=== PATIENT | female | born 1965 | race Caucasian/White ===

== ENCOUNTER 2019-03-03 13:06 | Emergency (ER) | payer BC ==
[~2019-03-03] VITALS: Ht 175.3 cm; Wt 52.3 kg
[2019-03-03 13:12] VITALS: TEMP 97
[2019-03-03 13:35] LABS: BASO # 0.1 (0.0-0.2); BASO % 0.7 % (0.0-2.0); EOS # 0.2 (0.0-0.7); EOS % 2.2 % (0-4.0); GRAN # 3.7 (1.4-6.5); GRAN % 45.1 % (42.2-75.2); HEMATOCRIT 45.3 % (37.0-47.0); HEMOGLOBIN 15.5 g/dl (12.5-16.0); LYMPH # 3.4 (1.2-3.4); LYMPH % 42.1 % (20.0-51.0); MEAN CELL VOLUME 93 fl (80.0-100.0); MEAN CORPUSCULAR HEMOGLOBIN 32 pg (27.0-31.0); MEAN CORPUSCULAR HGB CONC 34 g/dl (33.0-37.0); MEAN PLATELET VOLUME 10.5 fl (7.4-10.4); MONO # 0.8 (0.1-0.6); MONO % 9.7 % (1.7-9.3); PLATELET COUNT 300 K/mm3 (130-400); RED BLOOD COUNT 4.87 M/mm3 (4.10-5.30); REDCELL DISTRIBUTION WIDTH-CV 12.8 % (11.5-14.5)
[2019-03-03 13:41] LABS: INR 0.8 (0.8-3.0); PROTHROMBIN TIME 9.8 SECONDS (9.7-12.8)
[2019-03-03 13:43] LABS: ALANINE AMINOTRANSFERASE 30 U/L (9-52); ALBUMIN 4.9 gm/dL (3.5-5.0); ALKALINE PHOSPHATASE 59 U/L (50-136); ANION GAP 11 mmol/L (7-16); AST,SGOT 36 U/L (15-37); BILIRUBIN,TOTAL 1.9 mg/dL (0.0-1.0); BLOOD UREA NITROGEN 14 mg/dL (7-17); CALCIUM 10.1 mg/dL (8.4-10.2); CARBON DIOXIDE 26 mmol/L (22-30); CHLORIDE 103 mmol/L (98-107); CREATININE, serum 0.68 (0.52-1.25); GLUCOSE 113 mg/dL (74-106); PARTIAL THROMBOPLASTIN TIME 32.8 SECONDS (26.0-37.0); POTASSIUM 3.8 mmol/L (3.4-5.0); SODIUM 139 mmol/L (137-145); TOTAL PROTEIN 8.2 gm/dL (6.4-8.2)
[2019-03-03 13:55] LABS: TROPONIN-I < 0.012 ng/mL (0.000-0.035)
[2019-03-03 18:01] VITALS: BP 115/63; PULSE 65
== END 2019-03-03 18:02 | disposition home or self-care (01) ==
LOC: COL.ER 13:06
PROVIDERS: Family Medicine
DX: R07.89 Other chest pain (principal); R00.2 Palpitations; F17.210 Nicotine dependence, cigarettes, uncomplicated

== ENCOUNTER 2021-02-21 17:12 | Emergency (ER) | payer SELFPAY ==
[~2021-02-21] VITALS: Ht 172.7 cm; Wt 59.1 kg
[2021-02-21 18:08] VITALS: TEMP 97.2
[2021-02-21 18:35] LABS: BASO # 0.1 K/mm3 (0.0-0.2); BASO % 1.1 % (0.0-2.0); EOS % 0.3 % (0-4.0); GRAN # 5.6 K/mm3 (1.4-6.5); HEMATOCRIT 39.3 % (37.0-47.0); HEMOGLOBIN 14.1 g/dl (12.5-16.0); LYMPH # 1.2 K/mm3 (1.2-3.4); LYMPH % 15.9 % (20.0-51.0); MEAN CELL VOLUME 93 fl (80.0-100.0); MEAN CORPUSCULAR HEMOGLOBIN 33 pg (27.0-31.0); MEAN CORPUSCULAR HGB CONC 36 g/dl (33.0-37.0); MONO # 0.7 K/mm3 (0.1-0.6); MONO % 9.2 % (1.7-9.3); PLATELET COUNT 226 K/mm3 (130-400); RED BLOOD COUNT 4.25 M/mm3 (4.10-5.30)
[2021-02-21 18:52] LABS: ALBUMIN 4.2 gm/dL (3.5-5.0); BILIRUBIN,TOTAL 2.5 mg/dL (0.2-1.2); C-REACTIVE PROTEIN 0.42 mg/dL (0.00-0.50); CALCIUM 9.3 mg/dL (8.4-10.2); CREATININE, serum 0.67 mg/dL (0.57-1.11)
[2021-02-21 20:12] LABS: COLLECTION METHOD CLEAN CATCH
[2021-02-21 20:24] LABS: MUCOUS Present (NOT PRESENT); PH 6 (5-8); URINE APPEARANCE Hazy (CLEAR/HAZY); URINE BACTERIA Rare (NONE SEEN); URINE BILIRUBIN Negative (NEGATIVE); URINE BLOOD 1+ (NEGATIVE); URINE COLOR Yellow (YELLOW); URINE GLUCOSE Negative (NEGATIVE); URINE KETONE 2+ (NEGATIVE); URINE LEUKOCYTE ESTERASE 1+ (NEGATIVE); URINE NITRATE Negative (NEGATIVE); URINE PROTEIN(semi-quant) Negative (NEGATIVE); URINE UROBILINOGEN Negative (NEGATIVE)
[2021-02-21] MEDS ORDERED: ZOFRAN ODT4 MG PO (22:45)
[2021-02-21] MEDS ORDERED: PERCOCET 325 MG1 TA2 PO (22:45)
[2021-02-21 23:40] VITALS: BP 152/78; PULSE 76
== END 2021-02-21 23:40 | disposition home or self-care (01) ==
LOC: COL.ER 17:12
PROVIDERS: Family Medicine
DX: K85.90 Acute pancreatitis without necrosis or infection, unspecified (principal); F41.9 Anxiety disorder, unspecified; F32.A Depression, unspecified; F17.210 Nicotine dependence, cigarettes, uncomplicated; Z88.5 Allergy status to narcotic agent
CPT/HCPCS: J2270; J2405; J7030; J7120; Q9967

== ENCOUNTER → 2021-11-23 | Outpatient (CLI) | payer BC ==
[~2021-11-23] MED LIST: ATIVAN 1MG T1 MG/TAB PO; B COMPLEX #11 TA1 PO; DUO-KAPS1 CAP PO; FOLIC ACID 11 MG/TA1 PO; NYSTATIN OR100 MU/ML PO; PERCOCET 325 MG1 TA2 PO; PREDNISOLO15 MG/5 M3 PO; PROBIOTIC BLEN1 EACH PO; PROTONIX 40MG T40 MG PO; ROXICODONE 55 MG/TAB PO; THIAMINE 1100 MG/TAB PO; ZOFRAN ODT4 MG PO; ZOLOFT 50MG50 MG PO
== END ==
LOC: COL.RAD 10:59
DX: K76.0 Fatty (change of) liver, not elsewhere classified (principal); K63.89 Other specified diseases of intestine
CPT/HCPCS: Q9967

== ENCOUNTER 2021-11-28 13:09 | Inpatient (IN) | payer BC ==
[~2021-11-28] VITALS: Ht 172.7 cm; Wt 51.8 kg
[~2021-11-28 13:09] MED LIST changes: -ATIVAN 1MG T1 MG/TAB PO; -B COMPLEX #11 TA1 PO; -DUO-KAPS1 CAP PO; -FOLIC ACID 11 MG/TA1 PO; -NYSTATIN OR100 MU/ML PO; -PREDNISOLO15 MG/5 M3 PO; -PROBIOTIC BLEN1 EACH PO; -PROTONIX 40MG T40 MG PO; -ROXICODONE 55 MG/TAB PO; -THIAMINE 1100 MG/TAB PO; -ZOLOFT 50MG50 MG PO
[2021-11-28 14:15] LABS: HEMATOCRIT 37.1 % (37.0-47.0); HEMOGLOBIN 13.3 g/dl (12.5-16.0); MEAN CELL VOLUME 98 fl (80.0-100.0); MEAN CORPUSCULAR HEMOGLOBIN 35 pg (27-31); MEAN CORPUSCULAR HGB CONC 36 g/dl (33.0-37.0); MEAN PLATELET VOLUME 10.8 fl (7.4-10.4); PLATELET COUNT 226 K/mm3 (130-400); REDCELL DISTRIBUTION WIDTH-CV 13.8 % (11.5-14.5)
[2021-11-28 14:34] LABS: CALCIUM 8.4 mg/dL (8.4-10.2); CREATININE, serum 0.79 mg/dL (0.57-1.11); TOTAL PROTEIN 5.3 gm/dL (6.2-8.1)
[2021-11-28 14:39] LABS: POTASSIUM 2.6 mmol/L (3.5-4.5)
[2021-11-28 14:56] LABS: BAND 6 % (0-10); LYMPHOCYTE 4 % (20.0-51.0); METAMYELOCYTE 1 % (0-0); NEUTROPHILS 79 % (42.0-75.2); PLATELET ESTIMATE NORMAL (NORMAL)
[2021-11-28 16:37] LABS: INR 1.9 (0.8-3.0); PROTHROMBIN TIME 22.4 SECONDS (9.7-12.8)
--- NOTE | 2021-11-28 17:30 | NUR ---
PT ADMITTED TO ROOM 311 VIA CART FROM ED, REPORT RECEIVED FROM ED RN, VSS, PT A&O X4, JAUNDICED, FALL PRECAUTIONS IN PLACE, CALL LIGHT IN REACH
[2021-11-28 17:33] VITALS: BP 100/64; PULSE 83; TEMP 98.4
[2021-11-28] MEDS ORDERED: ATIVAN 1MG T1 MG/TAB PO (17:41)
[2021-11-28] MEDS ORDERED: B COMPLEX #11 TA1 PO (17:41)
[2021-11-28] MEDS ORDERED: ZOLOFT 50MG50 MG PO (17:42)
[2021-11-28 20:00] VITALS: BP 95/61; PULSE 79; TEMP 98.3
[2021-11-28 23:48] VITALS: BP 100/63; PULSE 78
[2021-11-29 03:36] VITALS: BP 100/64; PULSE 78; TEMP 98.3
--- NOTE | 2021-11-29 05:57 | NUR ---
SHIFT SUMMARY: PATIENT RESTED QUIETLY THIS SHIFT. PATIENT HAD NO COMPLAINTS OF PAIN AND RECEIVED NO PRNS. PATIENT HAD TWO EPISODES OF INCONTINENT STOOLS. PATIENT NOTED TO HAVE BRIGHT RED BLOOD ON TOILET PAPER WHEN WIPING AND PATIENT REPORTED HAVING HEMMERRHOIDS.
[2021-11-29 06:21] LABS: PROTHROMBIN TIME 23.4 SECONDS (9.7-12.8)
[2021-11-29 06:24] LABS: BASO % 0.2 % (0.0-2.0); EOS % 0.1 % (0.0-4.0); GRAN # 10.6 K/mm3 (1.4-6.5); HEMOGLOBIN 12.4 g/dl (12.5-16.0); LYMPH # 0.9 K/mm3 (1.2-3.4); LYMPH % 6.9 % (20.0-51.0); MEAN CORPUSCULAR HEMOGLOBIN 35 pg (27-31); MEAN CORPUSCULAR HGB CONC 35 g/dl (33.0-37.0); MEAN PLATELET VOLUME 11.5 fl (7.4-10.4); MONO # 0.9 K/mm3 (0.1-0.6); MONO % 6.8 % (1.7-9.3); PLATELET COUNT 200 K/mm3 (130-400); REDCELL DISTRIBUTION WIDTH-CV 14.2 % (11.5-14.5)
[2021-11-29 06:30] LABS: HEMATOCRIT 35.9 % (37.0-47.0); MEAN CELL VOLUME 103 fl (80.0-100.0)
[2021-11-29 06:38] LABS: ALBUMIN 1.7 gm/dL (3.5-5.0); BILIRUBIN,TOTAL 21.9 mg/dL (0.2-1.2); CALCIUM 8.1 mg/dL (8.4-10.2); CREATININE, serum 0.68 mg/dL (0.57-1.11); POTASSIUM 3.6 mmol/L (3.5-4.5); TOTAL PROTEIN 4.6 gm/dL (6.2-8.1)
[2021-11-29 07:19] VITALS: BP 110/64; BP 81/54; PULSE 59; TEMP 98
--- NOTE | 2021-11-29 08:26 | NUR ---
Pt assessment complete. Pt is sitting up in bed upon entry, she is A/O x4. Her breathing is even and unlabored on RA. Pt denies SOB. No pain at this time. Denies N/V. Reports diarrhea. Pt under the understanding she is having a liver biopsy today, will remain NPO until POC better known. No further needs at this time. Call light within reach.
--- NOTE | 2021-11-29 09:04 | NUR ---
Initial visit; Patient thanked Vacuum Repairer for looking in on her and offering Spiritual Care especially God's blessings. Vacuum Repairer will follow up and will keep Elza in her prayers.
[2021-11-29 11:48] VITALS: BP 95/59; PULSE 78; TEMP 97.8
--- NOTE | 2021-11-29 14:09 | NUR ---
Mechanical Design Drafter met with patient to discuss discharge planning. Patient lives alone in [place] and sees LUDIVINA Regalado for primary care. Patient obtains medications from [facility] and anticipates she may have some difficulty affording medications in the future as she quit her job in December and will be living off her senior care funds. Patient does not use any DME and is independent with ADLS. Higinio plans to return home at time of discharge. Patient requested SW follow up later to complete DPOA-HC. SW met with patient again with her son, Madison (ph#[phone]) and sister, Michelle Kelly. Patient stated she wanted to designate both of them as DPOA-HC. AJITH assisted patient in completing form, then AJITH and MARK Ferguson provided witness signature. SW placed copy in chart then provided original and copies to patient. Discharge Plan: Home
[2021-11-29 15:35] VITALS: BP 100/63; PULSE 75; TEMP 98
[2021-11-29 20:15] VITALS: BP 98/65; PULSE 72; TEMP 97.8
[2021-11-29 23:22] VITALS: BP 105/59; PULSE 71; TEMP 97.9
[2021-11-30] VITALS (10 sets, daily range): BP systolic 87–100; BP diastolic 48–65; PULSE 64–76; TEMP 97.5–98.2
--- NOTE | 2021-11-30 05:49 | NUR ---
SHIFT SUMMARY: PATIENT RESTED QUIETLY THIS SHIFT. PATIENT HAD NO COMPLAINTS OF PAIN AND RECEIVED NO PRN MEDICATION. PATIENT APPEARED TO BE STRONGER WHEN AMBULATING IN ROOM COMPARED TO PREVIOUS SHIFT.
[2021-11-30 06:44] LABS: INR 1.5 (0.8-3.0); PROTHROMBIN TIME 16.8 SECONDS (9.7-12.8)
[2021-11-30 06:50] LABS: ALBUMIN 1.7 gm/dL (3.5-5.0); CALCIUM 7.9 mg/dL (8.4-10.2); CREATININE, serum 0.65 mg/dL (0.57-1.11); POTASSIUM 3.2 mmol/L (3.5-4.5); TOTAL PROTEIN 4.5 gm/dL (6.2-8.1)
[2021-11-30 06:58] LABS: BASO % 0.2 % (0.0-2.0); EOS # 0.1 K/mm3 (0.0-0.7); EOS % 0.4 % (0.0-4.0); GRAN # 13.2 K/mm3 (1.4-6.5); GRAN % 78.4 % (42.2-75.2); LYMPH # 1.9 K/mm3 (1.2-3.4); LYMPH % 11.3 % (20.0-51.0); MEAN CELL VOLUME 105 fl (80.0-100.0); MEAN CORPUSCULAR HGB CONC 35 g/dl (33.0-37.0); MEAN PLATELET VOLUME 11.6 fl (7.4-10.4); MONO # 1.4 K/mm3 (0.1-0.6); MONO % 8.4 % (1.7-9.3); PLATELET COUNT 240 K/mm3 (130-400); RED BLOOD COUNT 2.81 M/mm3 (4.10-5.30); REDCELL DISTRIBUTION WIDTH-CV 14.6 % (11.5-14.5)
[2021-11-30 07:06] LABS: HEMATOCRIT 29.5 % (37.0-47.0); MEAN CORPUSCULAR HEMOGLOBIN 36 pg (27-31)
[2021-11-30 07:08] LABS: HEMOGLOBIN 10.2 g/dl (12.5-16.0)
--- NOTE | 2021-11-30 08:30 | NUR ---
0830 Pt laying in bed. Morning medications held due to NPO for EGD procedure today. Shift assessment completed. Pt is jaundice; eyes visibly yellow. Tele on with NSR. IVF NS at 75mL/hr in L wrist; intact. No redness, edema, or infiltration. No complaints or needs at this time. Bed alarm on. Belongings within reach. Call light within reach.
--- NOTE | 2021-11-30 10:26 | NUR ---
IV medications given as ordered. Shift assessment completed, charted by TREV Diaz, charting reviewed.
--- NOTE | 2021-11-30 10:38 | NUR ---
Follow-up visit; Elza having issues with eating, she says she is trying. She seemed earnestly trying to get better and was positive speaking about liking herself and wanting to get well when Skiagrapher told her how special it was working with her when she was here awhile ago. Skiagrapher will look in on Dina while she is here and keep her in her prayers.
--- NOTE | 2021-11-30 14:26 | NUR ---
Patient back from procedure. Post op vitals being monitored. BP's soft, but stable. Remainder of VSS. Patient given prn pain medication for headache that radiates down neck that is currently rated a 4/10. Fluids running as ordered. Patient denies any further pain, discomfort, SOA, or further needs at this time. Call light in reach. Fall precautions in place.
--- NOTE | 2021-11-30 15:29 | NUR ---
Mainframe Programmer followed up with patient about DME. Patient stated her son is working on obtaining a rollator, shower bench, and commode for her. Patient thought her son would likely go through [facility]. SW advised patient she had a signed order from the Hospitalist and to let SW know if [facility] needs any documentation from her. Patient verbalized understanding.
[2021-12-01 03:52] LABS: CERULOPLASMIN 29 mg/dL (20-60)
[2021-12-01 04:40] VITALS: BP 98/60; PULSE 77; TEMP 98.3
[2021-12-01 07:39] LABS: HEMOGLOBIN 12.1 g/dl (12.5-16.0); MEAN CELL VOLUME 103 fl (80.0-100.0); MEAN CORPUSCULAR HEMOGLOBIN 35 pg (27-31); MEAN CORPUSCULAR HGB CONC 34 g/dl (33.0-37.0); MEAN PLATELET VOLUME 11.4 fl (7.4-10.4); PLATELET COUNT 208 K/mm3 (130-400); REDCELL DISTRIBUTION WIDTH-CV 14.5 % (11.5-14.5)
[2021-12-01 07:43] LABS: ALBUMIN 1.7 gm/dL (3.5-5.0); BILIRUBIN,TOTAL 19.5 mg/dL (0.2-1.2); CALCIUM 7.8 mg/dL (8.4-10.2); CREATININE, serum 0.6 mg/dL (0.57-1.11); POTASSIUM 3.8 mmol/L (3.5-4.5); TOTAL PROTEIN 4.5 gm/dL (6.2-8.1)
[2021-12-01 07:44] LABS: HEMATOCRIT 35.9 % (37.0-47.0)
[2021-12-01 07:47] VITALS: BP 98/60; PULSE 75; TEMP 98.6
--- NOTE | 2021-12-01 08:22 | NUR ---
Patient's primary gissell Pacheco RN and student nurse Francisca from 0700 until 1345.
--- NOTE | 2021-12-01 10:06 | NUR ---
Follow-up visit; Patient thanked Composition Roll Maker And Cutter for looking in on her and visiting and wishing her well and God's blessings. Patient seems evasive regarding her health issues yet continues to say she is trying to get better. Her son did visit yesterday evening, she said, so that is good support for her. Composition Roll Maker And Cutter will continue to support her and keep her in Composition Roll Maker And Cutter's prayers.
[2021-12-01 11:08] VITALS: BP 101/61; PULSE 72; TEMP 97.3
[2021-12-01] MEDS ORDERED: NYSTATIN OR100 MU/ML PO (12:07)
[2021-12-01] MEDS ORDERED: PROTONIX 40MG T40 MG PO (12:08)
[2021-12-01] MEDS ORDERED: PROBIOTIC BLEN1 EACH PO (12:08)
[2021-12-01] MEDS ORDERED: THIAMINE 1100 MG/TAB PO (12:09)
[2021-12-01] MEDS ORDERED: FOLIC ACID 11 MG/TA1 PO (12:09)
[2021-12-01] MEDS ORDERED: DUO-KAPS1 CAP PO (12:09)
--- NOTE | 2021-12-01 13:49 | NUR ---
Primary nurse was assisted with [id number] patient care by [employer] student Francisca Quiles and [employer] instructor Helga Baum RN-BC.
[2021-12-01 14:35] LABS: ANA SCREEN with REFLEX Negative (Negative)
--- NOTE | 2021-12-01 15:41 | NUR ---
Perinatal Tech attended clinical rounds with the team and outpatient PT was discussed, which patient is agreeable to. AJITH met with patient to discuss where she would like to get this set up and patient will talk with her family and let SW know. Patient would like her rollator ordered from [facility] and requested order be sent there. AJITH contacted [facility] and faxed order. Angela advised patient will have to private pay for rollator, however tax will be taken off with the prescription AJITH sent. AJITH received a call from patient' DIL, Aurora who wanted to discuss outpatient alcohol counseling options. Aurora advised they have tried to talk with patient about inpatient treatment, however she is not agreeable. Patient is agreeable to counseling. AJITH discussed local options like [facility] and [facility]. AJITH will follow up with patient at a later time as she is currently in a swallow study. Aurora advised they are working with [facility] to pick up driver all needed DME for patient returning home. Aurora also inquired about patient applying for disability. AJITH consulted Ezequiel Financial Counselor.
[2021-12-01 15:44] VITALS: BP 101/58; PULSE 69; TEMP 97.8
--- NOTE | 2021-12-01 16:46 | NUR ---
Patient has had an uneventful day. Scheduled medications given by RN student specialist under close supervision of medical lab tech instructor. Shift assessment completed and charted by this RN. PRN pain medication given once this shift for flank pain. Patient states that this has helped alleviate her pain. VSS. Patient A&O. Patient continues to have diarrhea. Patient denies any further pain, discomfort, SOA, or further needs at this time. Call light in reach. Fall precautions in place.
[2021-12-01 20:06] VITALS: BP 100/66; PULSE 65; TEMP 97.7
[2021-12-02 00:48] VITALS: BP 107/65; PULSE 76; TEMP 97.9
[2021-12-02 04:49] VITALS: BP 101/64; PULSE 77; TEMP 98
[2021-12-02 06:40] LABS: HEMOGLOBIN 12.5 g/dl (12.5-16.0); MEAN CELL VOLUME 104 fl (80.0-100.0); MEAN CORPUSCULAR HEMOGLOBIN 35 pg (27-31); MEAN CORPUSCULAR HGB CONC 34 g/dl (33.0-37.0); MEAN PLATELET VOLUME 11.1 fl (7.4-10.4); PLATELET COUNT 214 K/mm3 (130-400); RED BLOOD COUNT 3.53 M/mm3 (4.10-5.30); REDCELL DISTRIBUTION WIDTH-CV 14.3 % (11.5-14.5)
[2021-12-02 06:52] LABS: INR 1.5 (0.8-3.0); PROTHROMBIN TIME 16.8 SECONDS (9.7-12.8)
[2021-12-02 06:58] LABS: HEMATOCRIT 36.8 % (37.0-47.0)
[2021-12-02 07:00] LABS: ALBUMIN 1.7 gm/dL (3.5-5.0); BILIRUBIN,TOTAL 20.1 mg/dL (0.2-1.2); CALCIUM 7.9 mg/dL (8.4-10.2); CREATININE, serum 0.65 mg/dL (0.57-1.11); POTASSIUM 3.5 mmol/L (3.5-4.5); TOTAL PROTEIN 4.5 gm/dL (6.2-8.1)
[2021-12-02 07:14] VITALS: BP 98/44; PULSE 73; TEMP 97.8
[2021-12-02 08:08] LABS: BAND 3 % (0-10); BASOPHIL 1 % (0-2); EOSINOPHIL 1 % (0-4); LYMPHOCYTE 11 % (20.0-51.0); NEUTROPHILS 75 % (42.0-75.2); PLATELET ESTIMATE NORMAL (NORMAL)
[2021-12-02 08:10] LABS: OVALOCYTES 1+
--- NOTE | 2021-12-02 12:24 | NUR ---
Android Platform Developer rounds: Android Platform Developer visit attempted. Patient was sleeping.
[2021-12-02 15:26] VITALS: BP 109/64; PULSE 72; TEMP 97.9
--- NOTE | 2021-12-02 17:30 | NUR ---
PATIENT ALERT AND ORIENTED X3, RESTING IN RELCINER. NO COMPLAINTS. CALL LIGHT WITHIN REACH.
[2021-12-02 20:19] VITALS: BP 109/66; PULSE 63; TEMP 97.9
[2021-12-02 23:57] VITALS: BP 122/74; PULSE 74; TEMP 97.9
[2021-12-03 04:21] VITALS: BP 119/62; PULSE 70; TEMP 97.6
[2021-12-03 06:49] LABS: ALBUMIN 1.7 gm/dL (3.5-5.0); BILIRUBIN,TOTAL 18.9 mg/dL (0.2-1.2); CALCIUM 8.2 mg/dL (8.4-10.2); CREATININE, serum 0.67 mg/dL (0.57-1.11); MAGNESIUM 2.6 mg/dL (1.6-2.6); POTASSIUM 4.6 mmol/L (3.5-4.5); TOTAL PROTEIN 4.4 gm/dL (6.2-8.1)
[2021-12-03 07:09] VITALS: BP 97/55; PULSE 71; TEMP 97.9
--- NOTE | 2021-12-03 07:28 | NUR ---
Pt assessment complete. Pt is up to the restroom upon entry. SBA back to bed. Reports RUQ dull pain. Denies N/V. Intermittent diarrhea still present. Denies any SOB. No needs at this time. Call light within reach.
[2021-12-03] MEDS ORDERED: ROXICODONE 55 MG/TAB PO (08:56)
[2021-12-03] MEDS ORDERED: PREDNISOLO15 MG/5 M3 PO (09:01)
[2021-12-03 11:41] VITALS: BP 96/57; PULSE 61; TEMP 98.5
[2021-12-03] MEDS ORDERED: ZOFRAN ODT4 MG PO (12:28)
--- NOTE | 2021-12-03 13:09 | NUR ---
Bessy RN informs this Location And Measurement Technician that Dr. Evans is ready to discharge patient, but requesting Home Health instead of outpatient PT. Location And Measurement Technician met with patient to discuss; patient presents alert and oriented, expresses readiness to go home and states she is okay with physician's recommendations "either way." She reviews Home Health options, including those printed from Medicare.gov website, and chooses first choice [facility] , second choice [facility] , and third choice [facility] . Location And Measurement Technician faxed referral to patient's first choice, [facility]. Location And Measurement Technician contacted [facility] and left a VM for Joe, Coordinator. Location And Measurement Technician faxed additional referrals to patient's second and third choices, as well. *Discharge to home with . agency referral pending*
--- NOTE | 2021-12-03 13:20 | NUR ---
3D Artist received telephone contact from Joe at [facility], who confirms patient referral accepted, "Good to go!" 3D Artist updates Bessy FLORES. Patient family to pick her up at discharge. *Discharge to home with [facility]*
--- NOTE | 2021-12-03 13:54 | NUR ---
Discharge paperwork and instructions reviewed with patient. All questions answered at this time. IV to LFA dc'd catheter tip intact. Pt wheeled out of facility at this time.
[2021-12-04 11:37] LABS: ANTISMOOTH MUSCLE ANTIBODY Negative (Negative)
--- NOTE | 2021-12-04 15:52 | NUR ---
Ceramic Tile Setter refaxed referral and discharge orders.
== END 2021-12-03 13:55 | disposition home health service (06) | DRG 432 ==
LOC: COL.ER 13:09 → MEDICAL 15:24
PROVIDERS: Internal Medicine Gastroenterology; Nurse Practitioner; Physician Assistant; ADMIT Internal Medicine
PROC: 0DB68ZX Excision of Stomach, Via Natural or Artificial Opening Endoscopic, Diagnostic (ICD-10-PCS; 2021-11-30)
PROC: 0DB18ZX Excision of Upper Esophagus, Via Natural or Artificial Opening Endoscopic, Diagnostic (ICD-10-PCS; 2021-11-30)
PROC: 0DB38ZX Excision of Lower Esophagus, Via Natural or Artificial Opening Endoscopic, Diagnostic (ICD-10-PCS; 2021-11-30)
PROC: 0DB98ZX Excision of Duodenum, Via Natural or Artificial Opening Endoscopic, Diagnostic (ICD-10-PCS; principal; 2021-11-30 13:00)
DX: K70.11 Alcoholic hepatitis with ascites (principal); E43 Unspecified severe protein-calorie malnutrition; K76.6 Portal hypertension; E87.1 Hypo-osmolality and hyponatremia; B37.0 Candidal stomatitis; Z68.1 Body mass index [BMI] 19.9 or less, adult; K74.60 Unspecified cirrhosis of liver; F10.10 Alcohol abuse, uncomplicated; F17.210 Nicotine dependence, cigarettes, uncomplicated; F32.A Depression, unspecified; F41.9 Anxiety disorder, unspecified; K21.9 Gastro-esophageal reflux disease without esophagitis; K76.0 Fatty (change of) liver, not elsewhere classified; E87.6 Hypokalemia; E88.09 Other disorders of plasma-protein metabolism, not elsewhere classified; D72.829 Elevated white blood cell count, unspecified; K22.2 Esophageal obstruction; K44.9 Diaphragmatic hernia without obstruction or gangrene; K29.30 Chronic superficial gastritis without bleeding; I95.9 Hypotension, unspecified; D64.9 Anemia, unspecified; K20.80 Other esophagitis without bleeding; M19.90 Unspecified osteoarthritis, unspecified site; Z90.49 Acquired absence of other specified parts of digestive tract; Z88.6 Allergy status to analgesic agent; Z88.0 Allergy status to penicillin; Z88.2 Allergy status to sulfonamides; Z88.8 Allergy status to other drugs, medicaments and biological substances
CPT/HCPCS: C1726; J0696; J2704; J3430; J3475; J3480; J7030; J7510; Q9967

== ENCOUNTER → 2021-12-15 | Outpatient (CLI) | payer BC ==
[~2021-12-15] MED LIST changes: +ATIVAN 1MG T1 MG/TAB PO; +B COMPLEX #11 TA1 PO; +DUO-KAPS1 CAP PO; +FOLIC ACID 11 MG/TA1 PO; +NYSTATIN OR100 MU/ML PO; +PREDNISOLO15 MG/5 M3 PO; +PROBIOTIC BLEN1 EACH PO; +PROTONIX 40MG T40 MG PO; +ROXICODONE 55 MG/TAB PO; +THIAMINE 1100 MG/TAB PO; +ZOLOFT 50MG50 MG PO
[2021-12-15 16:45] LABS: HEMOGLOBIN 13.2 g/dl (12.5-16.0); MEAN CELL VOLUME 96 fl (80.0-100.0); MEAN CORPUSCULAR HEMOGLOBIN 35 pg (27-31); MEAN CORPUSCULAR HGB CONC 36 g/dl (33.0-37.0); MEAN PLATELET VOLUME 10.7 fl (7.4-10.4); PLATELET COUNT 206 K/mm3 (130-400); RED BLOOD COUNT 3.83 M/mm3 (4.10-5.30); REDCELL DISTRIBUTION WIDTH-CV 15.3 % (11.5-14.5)
[2021-12-15 16:53] LABS: INR 1.3 (0.8-3.0); PROTHROMBIN TIME 14.9 SECONDS (9.7-12.8)
[2021-12-15 16:56] LABS: HEMATOCRIT 36.8 % (37.0-47.0)
[2021-12-15 17:04] LABS: BILIRUBIN,TOTAL 21.2 mg/dL (0.2-1.2); CALCIUM 8.6 mg/dL (8.4-10.2); CREATININE, serum 0.73 mg/dL (0.57-1.11); TOTAL PROTEIN 5.6 gm/dL (6.2-8.1)
[2021-12-15 17:07] LABS: BAND 2 % (0-10); EOSINOPHIL 3 % (0-4); LYMPHOCYTE 8 % (20.0-51.0); NEUTROPHILS 82 % (42.0-75.2); PLATELET ESTIMATE NORMAL (NORMAL)
[2021-12-15 17:40] LABS: POTASSIUM 2.4 mmol/L (3.5-4.5)
[2021-12-20 11:12] LABS: ANTISMOOTH MUSCLE ANTIBODY Negative (Negative)
== END ==
LOC: COL.LAB 16:12
PROVIDERS: Student in an Organized Health Care Education/Training Program
DX: R68.81 Early satiety (principal); R94.5 Abnormal results of liver function studies; Z87.19 Personal history of other diseases of the digestive system

== ENCOUNTER → 2021-12-18 | Outpatient (CLI) | payer BC ==
--- NOTE | 2021-12-13 08:33 | NUR ---
lmom with time date3 and instructions.
[2021-12-18 15:00] VITALS: BP 115/71; PULSE 75
== END ==
LOC: COL.RAD 13:25
DX: K70.11 Alcoholic hepatitis with ascites (principal)
CPT/HCPCS: 19804

== ENCOUNTER → 2022-11-22 | Outpatient (RCR) | payer MEDICAID ==
[~2022-11-22] MED LIST changes: +ALDACTONE50 MG PO; +CEPHALEXIN500 M1 PO; +K-DUR20 MEQ PO; +KLOR-CON 88 ME1; +LASIX 20MG TABL20 MG PO; +MULTI VITAMINS1 TAB PO; +ZAROXOLYN 2.52.5 MG PO; +ZITHROMAX Z PA250 MG PO; +ZOFRAN 4MG T4 MG/TAB PO
== END | disposition home or self-care (01) ==
LOC: WSPT
DX: M75.02 Adhesive capsulitis of left shoulder (principal)

== ENCOUNTER → 2022-12-19 | Outpatient (CLI) | payer SELFPAY | LOC: WSPT 15:08 | DX: M75.02 Adhesive capsulitis of left shoulder (principal) ==

== ENCOUNTER 2022-12-21 14:15 | Outpatient (RCR) | payer MEDICAID | END 2022-12-22 | disposition home or self-care (01) | LOC: WSPT | DX: M75.02 Adhesive capsulitis of left shoulder (principal) ==

== ENCOUNTER 2023-02-13 13:00 | Outpatient (RCR) | payer MEDICAID | END 2023-02-13 15:00 | disposition home or self-care (01) | LOC: WSPT 13:00 | DX: M75.02 Adhesive capsulitis of left shoulder (principal) ==